=== PATIENT | male | born 1930 | race Caucasian/White ===

== ENCOUNTER 2018-01-25 11:43 | Day surgery (SDC) | payer MEDICARE ==
[~2018-01-25] VITALS: Ht 175.3 cm; Wt 82.0 kg
[2018-01-25] MEDS ORDERED: SODIUM CHLORIDE 0.9% 1,000 ML IV SCH ×2 (11:52→12:30)
[2018-01-25] MEDS ORDERED: ENAL10TA PO (12:32)
[2018-01-25] MEDS ORDERED: MULT-717 PO (12:34)
[2018-01-25] MEDS ORDERED: VIT1TABL32 PO (12:34)
[2018-01-25] MEDS ORDERED: AMIO100T4 PO (12:34)
[2018-01-25] MEDS ORDERED: ASPI-496 PO (12:34)
[2018-01-25] MEDS ORDERED: TRIA1CAP3 PO (12:34)
[2018-01-25] MEDS ORDERED: FINA5TAB4 PO (12:34)
[2018-01-25 12:55] VITALS: BP 157/78
[2018-01-25] MEDS ORDERED: PLEASE ENTER HEIGHT AND WEIGHT MC SCH (13:00)
[2018-01-25] MEDS ORDERED: DIPHENHYDRAMINE 50 MG/ML, 1ML ONE (13:24)
[2018-01-25] MEDS ORDERED: CEFAZOLIN PMX 1GM/50ML 50 ML ONE (13:24)
[2018-01-25] MEDS ORDERED: MIDAZOLAM 1 MG/ML, 2ML ONE (13:24)
[2018-01-25] MEDS ORDERED: CEFAZOLIN 1,000 MG ONE (13:24)
[2018-01-25] MEDS ORDERED: FENTANYL PF 100 MCG/2ML ONE (13:24)
== END 2018-01-25 15:57 ==
LOC: CACL 11:43
PROVIDERS: ATTEND Internal Medicine Cardiovascular Disease
DX: Z95.0 Presence of cardiac pacemaker (principal); I10 Essential (primary) hypertension
CPT/HCPCS: 33228; 99156; 99157; C1785; J0690; J1200; J2250; J3010